=== PATIENT | female | born 1975 | race Caucasian/White ===

== ENCOUNTER 2018-06-03 02:17 | Emergency (ER) | END 2018-06-03 04:58 | disposition home or self-care (01) ==

== ENCOUNTER 2018-06-08 10:01 | Emergency (ER) | END 2018-06-08 15:00 | disposition home or self-care (01) ==

== ENCOUNTER 2018-12-17 15:48 | Outpatient (CLI) | payer OTHER ==
[~2018-12-17] VITALS: Ht 157.5 cm; Wt 93.7 kg
[~2018-12-17 15:48] MED LIST: HYDR-4011 PO; NITR-58 PO; PREN-46 PO
[2018-12-17 16:04] VITALS: Ht 157.5 cm; Wt 93.7 kg
--- NOTE | 2018-12-17 16:48 | PN ---
Triage Information Date/Time December 17, 2018 Reason for visit: Sent in by perinatology clinic for short cervix to rule out contractions Weeks of Gestation 23 weeks /Para 9 para 6 Diabetes: none Hypertention: none Objective Heart Rate: 150's Contractions: None (Patient had no uterine contractions over observation.) Disposition: Discharge Assessment/Plan Patient was placed on p.o. nifedipine Prometrium vaginal tablets Will follow patient as outpatient DEVONTE SOUZA MD Dec 17, 2018 16:48
== END 2018-12-17 16:44 | disposition home or self-care (01) ==
LOC: OBT 15:48 → L-D 15:49 → OBT 16:44
PROVIDERS: ATTEND Obstetrics & Gynecology
DX: O26.872 Cervical shortening, second trimester (principal); O09.522 Supervision of elderly multigravida, second trimester; Z3A.23 23 weeks gestation of pregnancy
CPT/HCPCS: 81001

== ENCOUNTER 2019-02-20 12:27 | Outpatient (CLI) | payer OTHER ==
[~2019-02-20] VITALS: Ht 160 cm; Wt 98.1 kg
[~2019-02-20 12:27] MED LIST changes: -HYDR-4011 PO; -NITR-58 PO
[2019-02-20 12:46] VITALS: Ht 160 cm; Wt 98.1 kg
[2019-02-20 12:47] VITALS: BP 111/73; PULSE 83; RESP 19
--- NOTE | 2019-02-20 14:18 | PN ---
Triage Information Date/Time February 20, 2019 Reason for visit: Sent in from clinic for antepartum testing because of uncontrolled GDM Weeks of Gestation 30 weeks /Para 9 para 6 Diabetes: gestational Diabetes management: diet controlled Objective Vital Signs Date Temp Pulse Resp B/P (MAP) Pulse Ox O2 O2 Flow FiO2 Time Delivery Rate 02/20/19 98.6 83 19 111/73 Room Air 12:47 (86) Heart Rate: 140's Heart Rate Comments Reactive Results/Medications Imaging Results Normal biophysical profile. Disposition: Discharge Assessment/Plan Will continue antepartum testing until patient gets appointments and antepartum testing in Follow-up with perinatology clinic for diabetic control Continue outpatient care DEVONTE SOUZA MD Feb 20, 2019 14:18
--- NOTE | 2019-02-20 14:38 | TRIAGE ---
OB Triage Datetime Report Generated by CPN: 02/20/2019 14:38 Datetime: 02/20/2019 14:07 Labor Evaluation Frequency: 2/HR Monitor Mode: External Duration (sec)2399: 50-60 Quality: Mild Pattern: Normal: <= 5 Contractions in 10 Minutes Resting Tone Chesaning: Relaxed Heart Rate FHR Baseline Rate: 140 Monitor Mode: External US Variability: Moderate 6-25 bpm Accelerations: 15X15 Decelerations: None Category: Category I Datetime: 02/20/2019 12:50 Assessment Type: Triage Maternal Assessment Level of Consciousness: Fully Conscious DTR's/Clonus: DTRs 2+; No Clonus Headache: Denies Blurred Vision: No Respiratory Effort: Unlabored; Regular Rhythm; Equal Expansion Breath Sounds, Left: Clear and Equal Breath Sounds, Right: Clear and Equal Nausea/Vomiting: Denies RUQ Epigastric Pain: Denies Lower Extremities Edema: None Degree: None Upper Extremities Edema: None Degree: None Facial Edema: None Fall Risk Assessment History of Falling: (0) No Secondary Diagnosis: (0) No Ambulatory Aid: (0) Bedrest/Nurse Assist IV Therapy: (0) No Gait: (0) Normal/Bedrest/Immobile Mental Status: (0) Oriented to Own Ability Fall Score: 0 Fall Risk Score Definition: No Risk: No action required Datetime: 02/20/2019 12:49 Arrived By: Ambulatory Arrived From: Office Chief Complaint: GDM Movement: Present Contractions: Denies/Absent Rupture of Membranes: Denies Vaginal Bleeding: None Vaginal Discharge: Denies Recent Sexual Intercouse: Denies Abdominal Trauma: Not Applicable Patient Complaints: Other Time Provider Notified: 02/20/2019 14:20 Provider Notified: DR GARRIDO Initial Plan: NST BPP Datetime: 12/17/2018 16:46 Maternal Assessment Level of Consciousness: Fully Conscious DTR's/Clonus: DTRs 1+ Headache: Denies Blurred Vision: No Respiratory Effort: Unlabored Breath Sounds, Left: Clear and Equal Breath Sounds, Right: Clear and Equal Nausea/Vomiting: Denies RUQ Epigastric Pain: Denies Facial Edema: None Labor Evaluation Frequency: NONE Monitor Mode: External Resting Tone Chesaning: Relaxed Pain Assessment Pain Scale: 0 Pain Presence: None/Denies Pain Type: N/A Pain Goal: 3 Vaginal Exam Membrane Status: Intact Datetime: 12/17/2018 16:07 EGA: 22.6 Datetime: 12/17/2018 16:02 Stage of : OB Triage Maternal Assessment Level of Consciousness: Fully Conscious DTR's/Clonus: DTRs 2+; No Clonus Headache: Denies Blurred Vision: No Respiratory Effort: Unlabored; Regular Rhythm; Equal Expansion Breath Sounds, Left: Clear and Equal Breath Sounds, Right: Clear and Equal Nausea/Vomiting: Denies RUQ Epigastric Pain: Denies Lower Extremities Edema: None Degree: None Upper Extremities Edema: None Degree: None Facial Edema: None Temperature Route: Axillary Fall Risk Assessment History of Falling: (0) No Secondary Diagnosis: (0) No Ambulatory Aid: (0) Bedrest/Nurse Assist IV Therapy: (0) No Gait: (0) Normal/Bedrest/Immobile Mental Status: (0) Oriented to Own Ability Fall Score: 0 Fall Risk Score Definition: No Risk: No action required Datetime: 12/17/2018 15:58 Maternal Assessment Level of Consciousness: Fully Conscious DTR's/Clonus: DTRs 1+ Headache: Denies Blurred Vision: No Breath Sounds, Left: Clear and Equal Breath Sounds, Right: Clear and Equal Nausea/Vomiting: Denies RUQ Epigastric Pain: Denies Facial Edema: None Labor Evaluation Frequency: NONE Monitor Mode: External Resting Tone Chesaning: Relaxed Heart Rate FHR Baseline Rate: 140 Monitor Mode: External US Variability: Moderate 6-25 bpm Accelerations: 10X10 Decelerations: None Category: Category I Pain Assessment Pain Scale: 0 Pain Presence: None/Denies Pain Type: N/A Pain Goal: 3 Vaginal Exam Membrane Status: Intact Datetime: 12/17/2018 15:38 Time of Arrival: 12/17/2018 15:38 EGA: 22.6 Arrived By: Ambulatory Arrived From: Other Unit in Hospital Chief Complaint: PT CAME IN FROM PERINATOLOGY CLINIC FOR SHORT CERVIX Movement: Present Contractions: Denies/Absent Rupture of Membranes: Denies Vaginal Discharge: Denies Recent Sexual Intercouse: Denies Abdominal Trauma: Not Applicable Additional Patient Complaints: NONE Initial Plan: MONITOR
== END 2019-02-20 14:30 | disposition home or self-care (01) ==
LOC: L-D 12:27 → OBT 12:27
PROVIDERS: ATTEND Obstetrics & Gynecology
DX: O24.419 Gestational diabetes mellitus in pregnancy, unspecified control (principal); O09.523 Supervision of elderly multigravida, third trimester; Z3A.30 30 weeks gestation of pregnancy
CPT/HCPCS: 76818; Z7500; G0463

== ENCOUNTER 2019-02-24 12:09 | Inpatient (IN) | payer OTHER ==
[~2019-02-24] VITALS: Ht 152.4 cm; Wt 98.3 kg
[2019-02-24 12:29] VITALS: BP 115/65; PULSE 67; RESP 19; Ht 152.4 cm; Wt 98.3 kg
[2019-02-24] MEDS ORDERED: TERBUTALINE 1 MG/ML INJ SC ONE (14:00)
[2019-02-24] MEDS ORDERED: LACTATED RINGER'S 1,000 ML IV ONE (14:00)
[2019-02-24] MEDS: LACTATED RINGER'S 1,000 ML IV SCH ×2 (15:29→21:40)
[2019-02-24] MEDS ORDERED: GLUCOSE GEL 15 GRAM TUBE BUCCAL PRN (15:30)
[2019-02-24] MEDS ORDERED: GLUCOSE GEL 15 GRAM TUBE PO PRN ×2 (15:30)
[2019-02-24] MEDS ORDERED: MAGNESIUM SULFATE 4 GM/100 ML 100 ML IV ONE (15:30)
[2019-02-24] MEDS ORDERED: GLUCAGON 1 MG INJ IM PRN (15:30)
[2019-02-24] MEDS: BETAMET NA PHOS/AC(6 MG/ML) 2 ML INJ SYG IM SCH ×2 (15:30→17:58)
[2019-02-24] MEDS ORDERED: DEXTROSE 50% 50 ML SYRINGE IV PRN ×2 (15:30)
[2019-02-24] MEDS: MAGNESIUM SULFATE 20 GM/500 ML 500 ML IV SCH (17:11)
[2019-02-24] MEDS ORDERED: INSULIN ASPART [NOVOLOG] 3 ML PEN SC SCH (17:35)
--- NOTE | 2019-02-24 18:55 | HP ---
Date/Time of Note Date/Time of Note DATE: 02/24/19 TIME: 18:49 OB - History Hx of Present Free Text/Dictation 43-year-old female 9 para 6 at 32 weeks and 6 days gestation was being evaluated during antepartum testing for diabetes and noticed to have persistent uterine contractions Baby is grossly overweight and patient is gestational diabetic but appears uncontrolled at the moment Last Menstrual Period: Jul 10, 2018 Estimated Due Date: Apr 16, 2019 : 9 Para: 6 Spontaneous : 2 Care: Good Care Ultrasounds: Normal mid trimester US Obstetrical Complications: Gestational Diabetes, Other (Advanced maternal age) Medical Complications: None Past Family/Social History * Past Medical, Surgical, Family and Obstetric Histories reviewed from chart. Blood Type: A+ Rubella: immune RPR/VDRL: Negative GBS Status: Unknown HBsAG: Negative OB Admission Exam Vital Signs Vital Signs Vital Signs Date Temp Pulse Resp B/P (MAP) Pulse Ox O2 O2 Flow FiO2 Time Delivery Rate 02/24/19 97.6 67 19 115/65 Room Air 12:29 (82) Physical Exam HEENT: WNL Heart: Rhythm Normal Lungs: Clear, Equal Abdomen: WNL Extremities: Normal Reflexes: Normal Cervical Dilatation: None Effacement: 50% Station: -3 Membranes: Intact Heart Rate: 150's Accelerations: Accelerations Present Decelerations: No Decelerations Varibility: Marked Contractions on Admission: < 5 Minutes Apart Date/Time Contractions Began: ? Frequency of Contractions: ? Duration: ? Last 72 hourBlood Glucose Bedside Glucose - 72 Hours Test 02/24/19 17:50 Bedside Glucose 91 mg/dL (70-220) Last 72 hours Lab Results CBC & BMP 02/24/19 14:10 OB Assessment/Plan Other Assessment: contractions at 32 weeks and 6 days gestation Gestational diabetes Other plan: Admit for steroid administration Magnesium sulfate was started for neuro prophylaxis Manage blood sugar by sliding scale insulin orders and diet Continue to observe patient in house for 8-hour DEVONTE SOUZA MD Feb 24, 2019 18:55
[2019-02-24] MEDS: ACCU-CHEK XX SCH (21:40)
[2019-02-24] MEDS: INSULIN ASPART [NOVOLOG] 3 ML PEN SC SCH (21:40)
[2019-02-25] MEDS: MAGNESIUM SULFATE 20 GM/500 ML 500 ML IV SCH ×3 (01:13→15:00)
[2019-02-25] MEDS: LACTATED RINGER'S 1,000 ML IV SCH ×2 (02:23→14:52)
[2019-02-25] MEDS: ACCU-CHEK XX SCH ×4 (08:00→21:10)
[2019-02-25] MEDS: FERROUS SULFATE (EC) 325 MG TAB PO SCH (10:02)
[2019-02-25] MEDS: PRENATAL VITAMIN PO SCH (10:03)
--- NOTE | 2019-02-25 15:05 | PN ---
Date/Time of Note Date/Time of Note DATE: 02/25/19 TIME: 15:02 OB Subjective Subjective Subjective Has no complaint of uterine contractions OB Objective Objective Objective Vital signs are stable in general physical exam is unchanged On electronic monitoring no uterine contractions seen Blood sugars appear to be stable although patient has received of a regular insulin last p.m. Second dose of steroid is due at 17:30 today OB Assessment/Plan Reason for admission: labor Other Assessment: 33 or 34 weeks gestation labor Other plan: Continue magnesium sulfate until 24-hour post second dose Change to p.o. medication afterwards DEVONTE SOUZA MD Feb 25, 2019 15:05
[2019-02-25] MEDS: INSULIN ASPART [NOVOLOG] 3 ML PEN SC PRN ×2 (17:07→21:17)
[2019-02-25] MEDS ORDERED: BETAMET NA PHOS/AC(6 MG/ML) 2 ML INJ SYG IM ONE (17:50)
[2019-02-26] MEDS: MAGNESIUM SULFATE 20 GM/500 ML 500 ML IV SCH ×2 (00:25→11:25)
[2019-02-26] MEDS: ACCU-CHEK XX SCH ×2 (00:28→11:00)
[2019-02-26] MEDS: LACTATED RINGER'S 1,000 ML IV SCH (04:05)
[2019-02-26] MEDS: INSULIN ASPART [NOVOLOG] 3 ML PEN SC PRN ×2 (11:22→15:20)
[2019-02-26] MEDS: PRENATAL VITAMIN PO SCH (11:25)
[2019-02-26] MEDS: FERROUS SULFATE (EC) 325 MG TAB PO SCH (11:25)
--- NOTE | 2019-02-26 13:32 | DS ---
Date/Time of Note Date/Time of Note Patient with minimal uterine contractions Will place on p.o. nifedipine and DC patient home today DATE: 02/26/19 TIME: 13:31 Obstetrical Discharge Record Final Diagnosis Final Diagnosis: not delivered Other Final Diagnosis uterine contractions Complications Other ( labor) Tocolytics: Magnesium Sulfate, Other (Nifedipine) Condition on Discharge Physical Assessment Voiding: Yes Bowel Movement: Yes Breast: Soft, non-tender, Filling Fundus: Other (Recommend) Abdomen and Incision: Abdomen is gravid fundal height is 33 heart tones are reactive Calf Tenderness: No Patient Condition: Good DEVONTE SOUZA MD Feb 26, 2019 13:32
[2019-02-26] MEDS ORDERED: NIFE10CA PO (13:40)
--- NOTE | 2019-02-26 13:40 | PD.PPDC ---
HEALTH ADVISOR Discharge Instruction Provider Information Physician Information 43-year-old female at 33+ weeks gestation admitted for contractions Had tocolysis of contractions using magnesium sulfate and states stable on p.o. nifedipine Diagnosis [id number] Final Diagnosis: Rzfnr8f labor Condition [id number] Patient Condition: Mrhem5t Good Diet Fhswy7Ww Diet: Mcrhy1b Special Diet Special Diet: 2000-calorie ADA Activity/Restrictions [id number] Activity: Rqqtx5a May Shower [id number] Restrictions: Cmgxe1z No Exercising No Lifting Minimize Walking Nothing in the Vagina [id number] Return to Work or School: Azjqd0d May 19, 2019 (After delivery) Follow-up Follow-up with Physician: 1, 2, Day/Days (In antepartum unit for follow-up) Return to clinic for Comment: Refer back to OB triage in case of uterine contractions every 10 to 15 minutes DEVONTE SOUZA MD Feb 26, 2019 13:40
[2019-02-26] MEDS: NIFEdipine 10 MG CAP PO SCH ×2 (13:58→20:12)
--- NOTE | 2019-02-27 21:16 | DELSUM ---
Delivery Summary A-C Datetime Report Generated by CPN: 02/27/2019 21:15 LABOR SUMMARY EDC: 04/16/2019 00:00 No. Babies in Womb: 1
--- NOTE | 2019-03-03 14:55 | NSTRPT ---
NST Information Datetime Report Generated by CPN: 03/03/2019 14:55 Datetime: 03/03/2019 13:54 NST Information EGA: 33.5 Test Number: 1 Time on Monitor: 03/03/2019 14:24 Time off Monitor: 03/03/2019 14:47 NST Duration (Min): 23 Reason for NST: Diabetes Mellitus Reason for NST Other: A2DM(metformin) Test and Monitor Explained: Monitor Explained; Test Explained; Verbalized Understanding Pulse: 88 Resp: 18 SBP: 103 DBP: 56 Test Evaluation NST Interventions: None Patient States Movement: Present Variability: Moderate 6-25bpm Accelerations: 15X15 Decelerations: None FHR Category: Category I NST Results: Reactive Comments: To US JACINTA-8.7, CEPHALIC FBS-107 Electronically Signed By E-Signature: with User ID: [id number]
== END 2019-02-26 21:05 | disposition home or self-care (01) | DRG 833 ==
LOC: L-D 12:09 → OBT 12:09 → L-D 15:10 → PP1 21:42
PROVIDERS: ADMIT Obstetrics & Gynecology; ATTEND Obstetrics & Gynecology
DX: O47.03 False labor before 37 completed weeks of gestation, third trimester (principal); O09.523 Supervision of elderly multigravida, third trimester; O24.419 Gestational diabetes mellitus in pregnancy, unspecified control; Z3A.32 32 weeks gestation of pregnancy
CPT/HCPCS: 36415; 76817; 76818; 81001; 82962; 83036; 83735; 85025; 87086; G0463; J0702; J1815; J3105; J3475; J7120

== ENCOUNTER 2019-04-01 14:40 | Inpatient (IN) | payer OTHER ==
[~2019-04-01] VITALS: Ht 157.5 cm; Wt 97.8 kg
[~2019-04-01 14:40] MED LIST changes: +NIFE10CA PO
[2019-04-01 16:04] VITALS: Ht 157.5 cm; Wt 97.8 kg
[2019-04-01] MEDS ORDERED: LACTATED RINGER'S 1,000 ML IV SCH (16:29)
[2019-04-01] MEDS ORDERED: MISOPROSTOL 200 MCG TAB PR PRN ×2 (16:30→21:30)
[2019-04-01] MEDS ORDERED: LIDOCAINE 1% (MPF) 30 ML INJ INJ PRN (16:30)
[2019-04-01] MEDS ORDERED: AMPICILLIN 2 GM/NS (PMX) 100 ML IV ONE (16:30)
[2019-04-01] MEDS ORDERED: CARBOPROST 250 MCG INJ IM PRN ×2 (16:30→21:30)
[2019-04-01] MEDS ORDERED: METHYLERGONOVINE 0.2 MG INJ IM PRN ×2 (16:30→21:30)
[2019-04-01] MEDS ORDERED: OXYTOCIN 30 UNITS/LR 500 ML IV PRN ×2 (16:30→21:30)
[2019-04-01] MEDS ORDERED: OXYTOCIN 30 UNITS/LR 500 ML IV SCH ×2 (16:30)
[2019-04-01] MEDS ORDERED: BUTORPHANOL 2 MG INJ IV PRN (16:30)
[2019-04-01] MEDS ORDERED: OXYCODONE/ASPIRIN (4.88/325) TAB PO PRN (16:30)
[2019-04-01] MEDS ORDERED: METF500T24 PO (17:03)
[2019-04-01] MEDS ORDERED: KETOROLAC 30 MG INJ IV STA (18:31)
--- NOTE | 2019-04-01 18:50 | HP ---
Date/Time of Note Date/Time of Note DATE: 04/01/19 TIME: 18:43 OB - History Hx of Present Free Text/Dictation 43-year-old female 9 para 6 AB 2 at 37 weeks and 6 days gestation admitted complaining of onset of uterine contractions started at 4:30 AM Denied rupture of membrane no vaginal bleeding Last Menstrual Period: Jul 10, 2018 Estimated Due Date: Apr 16, 2019 : 9 Para: 6 Spontaneous : 2 Care: Good Care Ultrasounds: Normal mid trimester US Obstetrical Complications: Gestational Diabetes, Other (Advanced maternal age and grand multiparity) Medical Complications: None Past Family/Social History * Past Medical, Surgical, Family and Obstetric Histories reviewed from chart. Blood Type: A+ Rubella: immune RPR/VDRL: Negative GBS Status: Negative HBsAG: Negative OB Admission Exam Physical Exam HEENT: WNL Heart: Rhythm Normal Lungs: Clear, Equal Abdomen: WNL Extremities: Normal Reflexes: Normal Cervical Dilatation: 6cm Effacement: 75% Station: -3 Membranes: Intact Heart Rate: 140's Accelerations: Accelerations Present Decelerations: No Decelerations Varibility: Moderate Contractions on Admission: 6-10 Minutes Apart Date/Time Contractions Began: 04/01/2019 at 4:30 AM Frequency of Contractions: Every 4 5 minutes Duration: Over 32nd Intensity: Moderate Last 72 hours Lab Results CBC & BMP 04/01/19 16:50 OB Assessment/Plan Reason for admission: active labor Other Assessment: Term gestation Labor contractions Gestational diabetes Advanced maternal age Grand multi para Other plan: Seed with spontaneous labor DEVONTE SOUZA MD Apr 01, 2019 18:50
[2019-04-01] MEDS ORDERED: ACETAMINOPHEN 500 MG TAB PO STA (18:52)
--- NOTE | 2019-04-01 18:52 | LDN ---
Date/Time of Note Date/Time of Note DATE: 04/01/19 TIME: 18:50 Delivery Summary Normal spontaneous vaginal delivery of a viable over intact perineum Weeks of Gestation 37 weeks and 6 days Placenta Delivered: Spontaneously, Intact & Complete Meconium: Particulate (Dark) Episiotomy: No Perineal laceration: 1 Laceration repair: Superficial perineal laceration was repaired today using 2-0 chromic on a small half needle Anesthesia type: Local Estimated blood loss: 200 Sponge & Needle done & correct: Yes All needle counts correct: Yes Any foreign bodies felt in the: No Infant Delivery Information Sex Sex: male Apgars 1 Minute: 9 5 Minute: 9 Suctioning Nose & mouth suctioned at piyush: Yes Delee suction performed: No Umbilical Cord Umbilical cord with: 3 Vessels Cord presentations: no nuchal cord Cord Blood was obtained: Yes Mother & Baby Disposition Disposition Mom & Baby to Maternity; Good: Yes (Mother and baby were recovered in good condition) Mom transferred to: Other (Maternity floor) Baby to NICU: No DEVONTE SOUZA MD Apr 01, 2019 18:52
[2019-04-01] MEDS ORDERED: AMPICILLIN 1 GM/NS (PMX) 50 ML IV SCH (20:30)
[2019-04-01 20:40] VITALS: BP 119/69; RESP 18
[2019-04-01] MEDS: LACTATED RINGER'S 1,000 ML IV* SCH (21:08)
[2019-04-01] MEDS ORDERED: GLUCAGON 1 MG INJ IM PRN (21:30)
[2019-04-01] MEDS ORDERED: HYDROCODONE/APAP (5/325) TAB PO PRN (21:30)
[2019-04-01] MEDS ORDERED: GLUCOSE GEL 15 GRAM TUBE PO PRN ×2 (21:30)
[2019-04-01] MEDS ORDERED: ZOLPIDEM 5 MG TAB PO PRN (21:30)
[2019-04-01] MEDS ORDERED: DIBUCAINE 1% 30 GM OINT TOP PRN (21:30)
[2019-04-01] MEDS ORDERED: BENZOCAINE 20% 56 ML SPRAY TOP PRN (21:30)
[2019-04-01] MEDS ORDERED: WITCH HAZEL/GLYCERIN PAD PR PRN (21:30)
[2019-04-01] MEDS ORDERED: DEXTROSE 50% 50 ML SYRINGE IV PRN ×2 (21:30)
[2019-04-01] MEDS ORDERED: GLUCOSE GEL 15 GRAM TUBE BUCCAL PRN (21:30)
[2019-04-01] MEDS: LANOLIN HPA 1 PKT TOP PRN (21:33)
[2019-04-02] VITALS: BP 119/68; RESP 19
[2019-04-02] MEDS: IBUPROFEN 600 MG TAB PO SCH ×5 (00:35→23:56)
[2019-04-02 04:00] VITALS: BP 118/58; RESP 17
[2019-04-02] MEDS: LACTATED RINGER'S 1,000 ML IV* SCH ×3 (05:08→21:08)
[2019-04-02] MEDS: ACCU-CHEK XX SCH ×8 (07:30→21:12)
[2019-04-02 08:00] VITALS: BP 105/57; PULSE 62; RESP 16
[2019-04-02] MEDS: SENNA/DOCUSATE NA (8.6MG/50MG) TAB PO SCH ×2 (08:54→21:08)
[2019-04-02] MEDS: MAGNESIUM HYDROXIDE 30ML CUP PO SCH ×2 (08:54→21:08)
[2019-04-02] MEDS: metFORMIN (XR) 500 MG TAB PO SCH ×2 (09:00→17:54)
[2019-04-02] MEDS: HYDROCODONE/APAP (5/325) TAB PO PRN (10:37)
[2019-04-02 12:00] VITALS: BP 125/60; PULSE 72; RESP 16
[2019-04-02 16:00] VITALS: BP 105/83; PULSE 72; RESP 18
--- NOTE | 2019-04-02 17:44 | PN ---
Date/Time of Note Date/Time of Note DATE: 04/02/19 TIME: 17:43 Assessment/Plan VTE Prophylaxis Risk score (from Ns)>0 risk: 1 SCD applied (from [facility] [place]): No SCD contraindicated: low risk/ambulating Pharmacological prophylaxis: NA/contraindicated Pharm contraindication: low risk/ambulating Assessment/Plan Assessment/Plan Status post vaginal delivery day #1 Patient desires sterilization Will schedule for tubal ligation following day Result Diagram: 04/02/19 0650 04/01/19 1650 Results 24hrs Laboratory Tests Test 04/02/19 00:57 04/02/19 06:29 04/02/19 06:50 04/02/19 08:44 Bedside Glucose 75 79 Lab Scanned Report REFERENCE LAB White Blood Count 10.3 Red Blood Count 3.27 #L Hemoglobin 9.4 #L Hematocrit 27.2 #L Mean Corpuscular 83.2 Volume Mean Corpuscular 28.7 L Hemoglobin Mean Corpuscular 34.6 Hemoglobin Concent Red Cell 14.5 Distribution Width Platelet Count 236 Mean Platelet 10.4 Volume Immature 0.700 H Granulocytes % Neutrophils % 63.3 Lymphocytes % 21.8 Monocytes % 8.9 Eosinophils % 5.1 Basophils % 0.2 Nucleated Red 0.0 Blood Cells % Immature 0.070 H Granulocytes # Neutrophils # 6.5 Lymphocytes # 2.2 Monocytes # 0.9 Eosinophils # 0.5 Basophils # 0.0 Nucleated Red 0.0 Blood Cells # Test 04/02/19 11:50 04/02/19 16:00 Bedside Glucose 96 107 Subjective 24 Hr Interval Summary Free Text/Dictation Patient does not have major medical complaints Constitutional: no complaints, improved Eyes: no complaints ENT: no complaints Respiratory: no complaints Cardiovascular: no complaints Gastrointestinal: no complaints Genitourinary: no complaints Musculoskeletal: no complaints Skin: no complaints Neurologic: no complaints Endocrine: no complaints Lymphatic: no complaints Psychological: no complaints, nl mood/affect Immunologic: no complaints Exam/Review of Systems Exam Vitals Vital Signs Date Temp Pulse Resp B/P (MAP) Pulse Ox O2 O2 Flow FiO2 Time Delivery Rate 04/02/19 98.1 72 18 105/83 Room Air 16:00 (90) Intake and Output 04/01/19 04/01/19 04/02/19 1515:00 23:00 07:00 IntakeIntake Total 850 ml 500 ml OutputOutput Total 715 ml 400 ml BalanceBalance 135 ml 100 ml Exam Abdomen is soft with firm fundus Constitutional: alert, oriented, well developed Psych: no complaints, nl mood/affect Head: normocephalic, atraumatic Eyes: nl conjunctiva, EOMI, nl lids, nl sclera, PERRL ENMT: nl external ears & nose, nl lips & teeth, nl nasal mucosa & septum Neck: supple, non-tender Respiratory: clear to auscultation, normal air movement Cardiovascular: regular rate and rhythm, nl pulses Gastrointestinal: soft, nl liver, spleen, non-tender Genitourinary - Female: uterus (Below bellybutton and firm) Musculoskeletal: nl extremities to inspection, nl gait and stance Extremities: normal pulses Neurological: WEB CONTENT EXECUTIVE II-XII intact, nl mental status, nl speech, nl strength Skin: nl turgor; No rash or lesions Lymph: nl lymph nodes Results Results 24hrs Laboratory Tests Test 04/02/19 00:57 04/02/19 06:29 04/02/19 06:50 04/02/19 08:44 Bedside Glucose 75 79 Lab Scanned Report REFERENCE LAB White Blood Count 10.3 Red Blood Count 3.27 #L Hemoglobin 9.4 #L Hematocrit 27.2 #L Mean Corpuscular 83.2 Volume Mean Corpuscular 28.7 L Hemoglobin Mean Corpuscular 34.6 Hemoglobin Concent Red Cell 14.5 Distribution Width Platelet Count 236 Mean Platelet 10.4 Volume Immature 0.700 H Granulocytes % Neutrophils % 63.3 Lymphocytes % 21.8 Monocytes % 8.9 Eosinophils % 5.1 Basophils % 0.2 Nucleated Red 0.0 Blood Cells % Immature 0.070 H Granulocytes # Neutrophils # 6.5 Lymphocytes # 2.2 Monocytes # 0.9 Eosinophils # 0.5 Basophils # 0.0 Nucleated Red 0.0 Blood Cells # Test 04/02/19 11:50 04/02/19 16:00 Bedside Glucose 96 107 Medications Medication Current Medications Lactated Ringer's 1,000 ml @ 125 mls/hr Q8H IV* ; Start 04/01/19 at 21:08 Ibuprofen (Motrin) 600 mg Q6 PO Last administered on 04/02/19at 11:47; Admin Dose 600 MG; Start 04/02/19 at 00:00 Acetaminophen/ Hydrocodone Bitart ([place] (5/325)) 1 tab Q4H PRN PO .PAIN 1-5; Start 04/01/19 at 21:30 Acetaminophen/ Hydrocodone Bitart ([place] (5/325)) 2 tab Q4H PRN PO .PAIN 6-10 L ast administered on 04/02/19at 10:37; Admin Dose 2 TAB; Start 04/01/19 at 21:30 Zolpidem Tartrate (Ambien) 5 mg QHS PRN PO .INSOMNIA; Start 04/01/19 at 21:30 Senna/Docusate Sodium (Senokot-S) 1 tab BID PO Last administered on 04/02/19 08:54; Admin Dose 1 TAB; Start 04/02/19 at 09:00 Magnesium Hydroxide (Milk Of Mag) 30 ml Q12 PO Last administered on 04/02/19 08:54; Admin Dose 30 ML; Start 04/02/19 at 09:00 Witch Krista/ Glycerin (Tucks Pads) 1 pad BEDSIDE MEDICATION PRN CA .HEMORRHOID/EPISIOTOMY PAIN Last administered on 04/01/19at 21:33; Admin Dose 40 PAD; Start 04/01/19 at 21:30 Benzocaine (Dermoplast [place]) 1 spray BEDSIDE MEDICATION PRN TOP .HEMMORHOID/EPISIOTOMY PAIN Last administered on 04/01/19 21:33; Admin Dose 56 SPRAY; Start 04/01/19 at 21:30 Dibucaine (Nupercainal) 1 applic BEDSIDE MEDICATION PRN TOP .HEMMORHOID/EPISIOTOMY; Start 04/01/19 at 21:30 Lanolin (Lanolin Hpa) 1 applic BEDSIDE MEDICATION PRN TOP .NIPPLES Last administered on 04/01/19at 21:33; Admin Dose 1 APPLIC; Start 04/01/19 at 21:30 Measles/Mumps/ Rubella Vaccine Live (Mmr Ii Vaccine) 0.5 ml ONCE ONCE SC* ; Start 04/03/19 at 09:00; Stop 04/03/19 at 09:01 Diphtheria/ Tetanus/Acell Pertussis (Adacel) 0.5 ml ONCE ONCE IM* ; Start 04/03/19 at 09:00; Stop 04/03/19 at 09:01 Varicella Virus Vaccine Live (Varivax Vaccine With Diluent) 1,350 unit ONCE ONCE SC* ; Start 04/03/19 at 09:00; Stop 04/03/19 at 09:01 Oxytocin/Lactated Ringer's 500 ml @ 0 mls/hr ONCE PRN IV .VAGINAL BLEEDING; Start 04/01/19 at 21:30 Methylergonovine Maleate (Methergine) 0.2 mg ONCE PRN IM .VAGINAL BLEEDING; Start 04/01/19 at 21:30 Carboprost Tromethamine (Hemabate) 250 mcg ONCE PRN IM .VAGINAL BLEEDING; Start 04/01/19 at 21:30 Misoprostol (Cytotec) 1,000 mcg ONCE PRN CA .VAGINAL BLEEDING; Start 04/01/19 at 21:30 Metformin HCl (Glucophage Xr) 500 mg BID WITH MEALS PO Last administered on 04/02/19at 09:00; Admin Dose 500 MG; Start 04/02/19 at 08:05 Diagnostic Test (Pha) (Accu-Chek) 1 ea AC MEALS AND BEDTIME XX Last admi nistered on 04/02/19at 17:35; Admin Dose 1 EA; Start 04/02/19 at 07:35 Diagnostic Test (Pha) (Accu-Chek) 1 ea FBSPP XX Last administered on 04/02/19at 13:50; Admin Dose 1 EA; Start 04/02/19 at 07:30 Miscellaneous Information 1 ea NOTE XX ; Start 04/01/19 at 21:30 Glucose (Glutose) 15 gm Q15M PRN PO DECREASED GLUCOSE; Start 04/01/19 at 21:30 Glucose (Glutose) 22.5 gm Q15M PRN PO DECREASED GLUCOSE; Start 04/01/19 at 21:30 Dextrose (D50w Syringe) 25 ml Q15M PRN IV DECREASED GLUCOSE; Start 04/01/19 at 21:30 Dextrose (D50w Syringe) 50 ml Q15M PRN IV DECREASED GLUCOSE; Start 04/01/19 at 21:30 Glucagon (Glucagen) 1 mg Q15M PRN IM DECREASED GLUCOSE; Start 04/01/19 at 21:30 Glucose (Glutose) 15 gm Q15M PRN BUCCAL DECREASED GLUCOSE; Start 04/01/19 at 21:30 DEVONTE SOUZA MD Apr 02, 2019 17:44
[2019-04-02 19:35] VITALS: BP 117/60; PULSE 73; RESP 19
[2019-04-03] VITALS (30 sets, daily range): BP systolic 108–142; BP diastolic 55–81; PULSE 68–86; RESP 12–19
[2019-04-03] MEDS: LACTATED RINGER'S 1,000 ML IV* SCH ×3 (05:08→21:08)
[2019-04-03] MEDS: IBUPROFEN 600 MG TAB PO SCH ×3 (06:00→18:00)
[2019-04-03] MEDS: ACCU-CHEK XX SCH ×7 (07:30→20:05)
[2019-04-03] MEDS: metFORMIN (XR) 500 MG TAB PO SCH ×2 (08:05→18:05)
[2019-04-03] MEDS ORDERED: VARICELLA VACCINE LIVE/PF 1,350 UNIT/0.5 ML ML SC* ONE (09:00)
[2019-04-03] MEDS ORDERED: DIPHTH/TET/ACEL PERTUSS (ADULT) 0.5 ML VIAL IM* ONE (09:00)
[2019-04-03] MEDS: MAGNESIUM HYDROXIDE 30ML CUP PO SCH ×2 (09:00→21:41)
[2019-04-03] MEDS ORDERED: MEASLES,MUMPS,RUBELLA VACCINE INJ SC* ONE (09:00)
[2019-04-03] MEDS: SENNA/DOCUSATE NA (8.6MG/50MG) TAB PO SCH ×2 (09:00→21:41)
--- NOTE | 2019-04-03 11:47 | PREAC ---
Date/Time of Note Date/Time of Note DATE: 04/03/19 TIME: 11:46 Anesthesia Eval and Record Evaluation Time Pre-Procedure Interview DATE: 04/03/19 TIME: 11:46 Age 43 Sex female NPO: 8 hrs Preoperative diagnosis sterilization Planned procedure post tubal ligation Past Medical History Past Medical History: Includes GI: Obesity Surgery & Anesthesia Issues No known issue Meds Anticoagulation: No Beta Graham within 24 hr: No Reason Beta Graham not given: Pt. not on B-Graham Active Scripts Nifedipine* (Procardia*) 10 Mg Capsule, 20 MG PO Q6, #120 CAP 0 Refills Prov:DEVONTE SOUZA MD 02/26/19 Reported Medications Metformin Hcl* (Metformin Hcl*) 500 Mg Tablet, 500 MG PO WITH BREAKFAST, #30 TAB 04/01/19 Vit #108/Iron/Fa ( ONE TABLET) 1 Each Tablet, 1 EACH PO DAILY 09/11/13 Current Medications Lactated Ringer's 1,000 ml @ 125 mls/hr Q8H IV* Last administered on 04/03/19at 08:19; Admin Dose 125 MLS/HR; Start 04/01/19 at 21:08 Ibuprofen (Motrin) 600 mg Q6 PO Last administered on 04/02/19at 23:56; Admin Dose 600 MG; Start 04/02/19 at 00:00 Acetaminophen/ Hydrocodone Bitart ([place] (5/325)) 1 tab Q4H PRN PO .PAIN 1-5; Start 04/01/19 at 21:30 Acetaminophen/ Hydrocodone Bitart ([place] (5/325)) 2 tab Q4H PRN PO .PAIN 6-10 Last administered on 04/02/19at 10:37; Admin Dose 2 TAB; Start 04/01/19 at 21:30 Zolpidem Tartrate (Ambien) 5 mg QHS PRN PO .INSOMNIA; Start 04/01/19 at 21:30 Senna/Docusate Sodium (Senokot-S) 1 tab BID PO Last administered on 04/02/19at 21:08; Admin Dose 1 TAB; Start 04/02/19 at 09:00 Magnesium Hydroxide (Milk Of Mag) 30 ml Q12 PO Last administered on 04/02/19at 21:08; Admin Dose 30 ML; Start 04/02/19 at 09:00 Witch Krista/ Glycerin (Tucks Pads) 1 pad BEDSIDE MEDICATION PRN [place] .HEMORRHOID/EPISIOTOMY PAIN Last administered on 04/01/19at 21:33; Admin Dose 40 PAD; Start 04/01/19 at 21:30 Benzocaine (Dermoplast [place]) 1 spray BEDSIDE MEDICATION PRN TOP .HEMMORHOID/EPISIOTOMY PAIN Last administered on 04/01/19at 21:33; Admin Dose 56 SPRAY; Start 04/01/19 at 21:30 Dibucaine (Nupercainal) 1 applic BEDSIDE MEDICATION PRN TOP .HEMMORHOID/EPISIOTOMY; Start 04/01/19 at 21:30 Lanolin (Lanolin Hpa) 1 applic BEDSIDE MEDICATION PRN TOP .NIPPLES Last administered on 04/01/19at 21:33; Admin Dose 1 APPLIC; Start 04/01/19 at 21:30 Oxytocin/Lactated Ringer's 500 ml @ 0 mls/hr ONCE PRN IV .VAGINAL BLEEDING; Start 04/01/19 at 21:30 Methylergonovine Maleate (Methergine) 0.2 mg ONCE PRN IM .VAGINAL BLEEDING; Start 04/01/19 at 21:30 Carboprost Tromethamine (Hemabate) 250 mcg ONCE PRN IM .VAGINAL BLEEDING; Start 04/01/19 at 21:30 Misoprostol (Cytotec) 1,000 mcg ONCE PRN [place] .VAGINAL BLEEDING; Start 04/01/19 at 21:30 Metformin HCl (Glucophage Xr) 500 mg BID WITH MEALS PO Last administered on 04/02/19at 17:54; Admin Dose 500 MG; Start 04/02/19 at 08:05 Diagnostic Test (Pha) (Accu-Chek) 1 ea AC MEALS AND BEDTIME XX Last administered on 04/02/19at 17:35; Admin Dose 1 EA; Start 04/02/19 at 07:35 Diagnostic Test (Pha) (Accu-Chek) 1 ea FBSPP XX Last administered on 04/02/19at 13:50; Admin Dose 1 EA; Start 04/02/19 at 07:30 Miscellaneous Information 1 ea NOTE XX ; Start 04/01/19 at 21:30 Glucose (Glutose) 15 gm Q15M PRN PO DECREASED GLUCOSE; Start 04/01/19 at 21:30 Glucose (Glutose) 22.5 gm Q15M PRN PO DECREASED GLUCOSE; Start 04/01/19 at 21:30 Dextrose (D50w Syringe) 25 ml Q15M PRN IV DECREASED GLUCOSE; Start 04/01/19 at 21:30 Dextrose (D50w Syringe) 50 ml Q15M PRN IV DECREASED GLUCOSE; Start 04/01/19 at 21:30 Glucagon (Glucagen) 1 mg Q15M PRN IM DECREASED GLUCOSE; Start 04/01/19 at 21:30 Glucose (Glutose) 15 gm Q15M PRN BUCCAL DECREASED GLUCOSE; Start 04/01/19 at 21:30 Meds reviewed: Yes Allergies Coded Allergies: No Known Allergy (Unverified , 04/01/19) Allergies Reviewed: Yes Labs/Studies Labs Reviewed: Reviewed by anesthesiologist Result Diagram: 04/02/19 0650 04/01/19 1650 test: Negative Pre-procedure Exam Last vitals Vital Signs Date Temp Pulse Resp B/P (MAP) Pulse Ox O2 O2 Flow FiO2 Time Delivery Rate 04/03/19 98.0 80 18 112/61 Room Air 08:00 (78) Airway: Adequate mouth opening, Adequate thyromental dist Mallampati: Mallampati II Teeth: Normal Lung: Normal Heart: Normal ASA Physical Status ASA physical status: 2 Emergency: None Planned Anesthetic Neuraxial: Spinal Planned Pain Management Parenteral pain med Pre-operative Attestations Prior to commencing anesthesia and surgery, the patient was re-evaluated, there was verification of: *The patient's identity *The results of appropriate recent lab work and preoperative vital signs *The above evaluation not changing prior to induction *Anesthetic plan, risk benefits, alternative and complications discussed with patient/family; questions answered; patient/family understands, accepts and wishes to proceed. CAREN AG Apr 03, 2019 11:47
[2019-04-03] MEDS ORDERED: BUPIVACAINE 0.25%/EPI (SDV) 30 ML INJ ONE (12:02)
[2019-04-03] MEDS ORDERED: CEFAZOLIN 1 GM INJ ONE (12:29)
[2019-04-03] MEDS ORDERED: FENTAnyl 50 MCG/ML VIAL ONE (12:30)
[2019-04-03] MEDS ORDERED: MIDAZOLAM 1 MG/ML 2 ML INJ ONE ×2 (12:34→12:53)
[2019-04-03] MEDS ORDERED: DIPHENHYDRAMINE 50 MG INJ IV PRN (14:00)
[2019-04-03] MEDS ORDERED: ONDANSETRON 4 MG INJ IV PRN (14:00)
[2019-04-03] MEDS ORDERED: MEPERIDINE 25 MG INJ IV PRN (14:00)
[2019-04-03] MEDS ORDERED: LABETALOL HCL 20MG INJ IV PRN (14:00)
[2019-04-03] MEDS ORDERED: EPHEDrine 25 MG/5 ML SYG IV PRN (14:00)
[2019-04-03] MEDS ORDERED: KETOROLAC 30 MG INJ IV PRN (14:00)
[2019-04-03] MEDS ORDERED: hydrALAzine 20 MG INJ IV PRN (14:00)
[2019-04-03] MEDS ORDERED: ALBUTEROL 0.083% (NEB) 2.5 MG/3 ML AMP HHN PRN (14:00)
[2019-04-03] MEDS ORDERED: MIDAZOLAM 1 MG/ML 2 ML INJ IV PRN (14:00)
[2019-04-03] MEDS ORDERED: FENTAnyl 50 MCG/ML VIAL IV PRN ×3 (14:00)
[2019-04-03] MEDS ORDERED: OXYCODONE/ACETAMINOPHEN (5/325) TAB PO PRN ×2 (14:00)
[2019-04-03] MEDS ORDERED: LACTATED RINGER'S 1,000 ML IV SCH (14:03)
[2019-04-03] MEDS ORDERED: KETOROLAC 60 MG INJ IM STA (14:03)
--- NOTE | 2019-04-03 14:09 | OPR ---
Operative Report Planned Procedure Procedure date Apr 03, 2019 Procedure(s) Bilateral tubal ligation Performed by see signature line Anesthesiologist: CAREN AG Pre-procedure diagnosis Status post vaginal delivery Multiparity with desire for sterilization [id number] Anesthesia Type: [id number] spinal Post-Procedure Post-procedure diagnosis Status post bilateral tubal ligation Findings Normal-appearing right and left fallopian tubes Estimated Blood Loss: 0 - 10 mls Specimen(s) Segments of right and left fallopian tubes Grafts/Implant(s) none Complication(s) none Pt Condition post procedure: stable Disposition: PACU Procedure Description The patient was placed on the OR table in supine position. Spinal anesthesia was placed. A Oconnor catheter was then inserted into urinary bladder under asep tic condition. After induction of spinal anesthesia, with the patient in supine position, abdominal area was prepped and draped for usual tubal ligation procedure. Under satisfactory anesthesia, a small incision 2 to 3 cm in length was placed just below belly button, incision extended laterally to 1.5 cm lateral to the linea nigra on either side. Incision was carried down with sharp and blunt dissection until fascia was reached. Anterior recti muscle fascia was incised in the midportion. Incision extended laterally to the border of the skin incision. Peritoneum was visualized. Avoiding bowel or bladder, incision was made in peritoneum, which was extended laterally to the border of the skin incision. Two [employer] retractors were placed inside the incision. Incision was brought up to the level of the left fallopian tube. Fallopian tube was raised in the mid portion. A clamp was placed below the fimbriated end, most of the fallopian tube from the mesosalpinx traversing the isthmus portion of the tube. Another clamp was placed just below the first and 0 Vicryl tie was used to tie the mesosalpinx and the stump of the fallopian tube on the proximal side. Another stitch of the same kind was used for adequate hemostasis. Hemostasis appeared to be secure on ligated sites of the fallopian tube. Tube was incised above the stitched area. Same procedure was done on the fallopian tube on opposite side. Hemostasis appeared to be secure on ligated sites of either fallopian tubes. Ovaries were within normal limits. Uterus appears to be size. Announcing needle, lap, sponge and instrument count to be correct, abdomen was closed in layers as follows: Peritoneum with running stitches of #1 Vicryl, fascia edges of #1 Vicryl, subcutaneous tissue with running stitches of #1 Vicryl, and skin was reapproximated using subcuticular stitches of 4-0 Monocryl on a PS2 needle and also Dermabond was placed on the incision. The patient tolerated the procedure very well and was transferred to postanesthesia recovery room in stable and good condition. ESTIMATED BLOOD LOSS: Less than 5 mL. DEVONTE SOUZA MD Apr 03, 2019 14:09
--- NOTE | 2019-04-03 14:10 | PD.PPDC ---
RADIATION MONITOR Discharge Instruction Provider Information Physician Information 43-year-old female that vaginal delivery and bilateral tubal ligation Diagnosis [id number] Final Diagnosis: Qwbor4s Status post bilateral tubal ligation Condition [id number] Patient Condition: [id number] Good Diet [id number] Diet: Kskpb9s Special Diet Special Diet: 2000-calorie ADA Activity/Restrictions 2 [id number] Activity: [id number] May Shower [id number] Restrictions: [id number] No Exercising No Lifting Nothing in the Vagina [id number] Return to Work or School: [id number] Apr 21, 2019 Wound/Drain Care Instructions [id number] Wound/Drain Care Instructions: [id number] Keep clean and dry Follow-up Follow-up with Physician: 2, 4, Week/Weeks (In clinic) Return to clinic for [id number] OB Instructions: [id number] Breast Tenderness Depression Comment: Pelvic rest and no hard activity for 6 weeks DEVONTE SOUZA MD Apr 03, 2019 14:10
[2019-04-03] MEDS ORDERED: IBUP-1542 PO (14:11)
[2019-04-03] MEDS ORDERED: METF500T3 PO (14:12)
[2019-04-03] MEDS ORDERED: BUTORPHANOL 2 MG INJ IM ONE (14:30)
--- NOTE | 2019-04-03 14:54 | PAC ---
Date/Time of Note Date/Time of Note DATE: 04/03/19 TIME: 14:53 Post-Anesthesia Notes Post-Anesthesia Note Last documented vital signs Vital Signs Date Temp Pulse Resp B/P (MAP) Pulse Ox O2 O2 Flow FiO2 Time Delivery Rate 04/03/19 98.1 86 17 113/57 98 Room Air 14:13 (75) 04/03/19 98.0 14:11 Activity: WNL Respiratory function: WNL Cardiovascular function: WNL Mental status: Baseline Pain reasonably controlled: Yes Hydration appropriate: Yes Nausea/Vomiting absent: Yes CAREN AG Apr 03, 2019 14:54
[2019-04-03] MEDS ORDERED: ACET325T33 PO (18:10)
[2019-04-03] MEDS ORDERED: ACETAMINOPHEN 325 MG TAB PO PRN (18:30)
[2019-04-03] MEDS: HYDROCODONE/APAP (5/325) TAB PO PRN (21:46)
== END 2019-04-03 23:50 | disposition home or self-care (01) | DRG 798 ==
LOC: OBT 14:40 → L-D 14:41 → OBT 15:57 → L-D 15:57 → PP1 20:51
PROVIDERS: ADMIT Obstetrics & Gynecology; ATTEND Obstetrics & Gynecology
PROC: 10E0XZZ Delivery of Products of Conception, External Approach (ICD-10-PCS; principal; 2019-04-01)
PROC: 0HQ9XZZ Repair Perineum Skin, External Approach (ICD-10-PCS; 2019-04-01)
PROC: 0UB70ZZ Excision of Bilateral Fallopian Tubes, Open Approach (ICD-10-PCS; 2019-04-03)
DX: O24.429 Gestational diabetes mellitus in childbirth, unspecified control (principal); Z37.0 Single live birth; O77.0 Labor and delivery complicated by meconium in amniotic fluid; O70.9 Perineal laceration during delivery, unspecified; O99.214 Obesity complicating childbirth; E66.9 Obesity, unspecified; Z3A.37 37 weeks gestation of pregnancy; Z30.2 Encounter for sterilization
CPT/HCPCS: 76815; 76818; 82947; 82962; 85025; 85610; 85730; 86592; 86850; 86900; 86901; 87340; 88302; 90716; 99464; G0463; J0290; J0595; J0690; J1885; J2250; J3010; J7120